=== PATIENT | male | born 1955 | race Caucasian/White ===

== ENCOUNTER → 2018-02-02 | Outpatient (CLI) | payer OTHER ==
[2018-01-30 11:00] VITALS: BP 122/71
[~2018-02-02] MED LIST: ACET-704 PO; AMOX1TAB61 PO; ASPI-482 PO; ASPI-630 PO; ASPI325T70 PO; ATORVASTATIN CA80 MG PO; CARV3.122 PO; CELE200C PO; CEPH-264 PO; CLOP75TA PO; DILT180C2 PO; DILT180C29 PO; DOCU100C28 PO; ENOX100D SQ; GLYB5TAB3 PO; HYDR-2758 PO; HYDR-971 PO; LIPITOR80 MG PO; LISI2.5T PO; LORA0.5T PO; LORA0.5T96 PO; Lisinopril PO; METF10003 PO; METO25TA4 PO; NITR0.4T SL; NITR0.4T22 SL; OMEP40CA5 PO; PANT20TA2 PO; PANT40TA3 PO; PROM25SU32 RC; RANO500T2 PO; SIMV20TA3 PO; TICA90TA PO; WARF-31 PO; WARF10TA40 PO; WARF10TA45 PO
[2018-02-02 12:50] LABS: PROTHROMBIN TIME PATIENT 17.6 SEC (11.7-14.0)
== END | disposition home or self-care (01) ==
LOC: LAB 12:10
PROVIDERS: ATTEND Internal Medicine
DX: Z48.812 Encounter for surgical aftercare following surgery on the circulatory system (principal); I12.9 Hypertensive chronic kidney disease with stage 1 through stage 4 chronic kidney disease, or unspecified chronic kidney disease; E11.22 Type 2 diabetes mellitus with diabetic chronic kidney disease; N18.9 Chronic kidney disease, unspecified; G43.909 Migraine, unspecified, not intractable, without status migrainosus; I25.10 Atherosclerotic heart disease of native coronary artery without angina pectoris; I25.2 Old myocardial infarction; K21.9 Gastro-esophageal reflux disease without esophagitis; E78.00 Pure hypercholesterolemia, unspecified; E78.5 Hyperlipidemia, unspecified; Z95.2 Presence of prosthetic heart valve; Z96.642 Presence of left artificial hip joint; Z86.73 Personal history of transient ischemic attack (TIA), and cerebral infarction without residual deficits; Z86.79 Personal history of other diseases of the circulatory system; Z86.14 Personal history of Methicillin resistant Staphylococcus aureus infection; Z87.39 Personal history of other diseases of the musculoskeletal system and connective tissue; Z86.69 Personal history of other diseases of the nervous system and sense organs; Z82.49 Family history of ischemic heart disease and other diseases of the circulatory system
CPT/HCPCS: 36415; 85610